=== PATIENT | female | born 1940 | race Hispanic/Latino ===

== ENCOUNTER 2022-07-18 06:37 | Day surgery (SDC) | payer MEDICARE, OTHER ==
[2022-07-15 11:21] LABS: APPEARANCE,URINE CLEAR (CLEAR); BILIRUBIN,URINE NEGATIVE (NEGATIVE); COLOR,URINE COLORLESS (YELLOW); GLUCOSE, URINE (UA) NEGATIVE (NEGATIVE); KETONES,URINE NEGATIVE (NEGATIVE); LEUKOCYTE ESTERASE ,URINE 250 Leu/uL (NEGATIVE); NITRATE,URINE NEGATIVE (NEGATIVE); OCCULT BLOOD,URINE NEGATIVE (NEGATIVE); PROTEIN,URINE NEGATIVE (NEGATIVE); UROBILINOGEN,URINE 0.2 mg/dL (0.2-1.0)
[2022-07-15 11:21] LABS: INR 1.01 (0.85-1.15)
[2022-07-15 11:22] LABS: PARTIAL THROMBOPLASTIN TIME 26.4 SEC (26.3-35.5)
[2022-07-15 11:24] LABS: ALBUMIN 3.5 g/dL (3.5-5.0); BILIRUBIN,DIRECT 0.1 mg/dL (0.0-0.3); CREATININE 0.7 mg/dL (0.5-1.5); POTASSIUM 4.5 mmol/L (3.5-5.1); TOTAL PROTEIN, SERUM 7.1 g/dL (6.0-8.3)
[2022-07-15 11:26] LABS: BASOPHILS % (AUTO) 0.6 % (0.0-5.0); EOSINOPHILS % (AUTO) 3.4 % (0.0-8.0); HEMATOCRIT 31.3 % (36-48); LYMPHOCYTES % (AUTO) 31.9 % (21.0-51.0); MEAN CORPUSCULAR HEMOGLOBIN 26.2 pg (27.0-33.0); MEAN CORPUSCULAR HGB CONC 30.7 g/dL (32.0-36.0); MEAN CORPUSCULAR VOLUME 85.5 fL (79-99); MONOCYTES % (AUTO) 6.5 % (3.0-13.0); NEUTROPHILS % (AUTO) 57.2 % (40.0-77.0); PLATELET COUNT (AUTO) 129 K/uL (130-400); RED BLOOD CELL COUNT(AUTO) 3.66 MIL/uL (4.00-5.50); RED CELL DISTRIBUTION WIDTH 15.7 % (11.0-15.5)
[2022-07-15 11:32] LABS: BACTERIA,URINE RARE /HPF (None Seen); SQUAMOUS EPITHELIAL CELL,UR RARE /HPF (0-2)
[2022-07-15 14:26] VITALS: BP 213/88
[2022-07-18] VITALS (15 sets, daily range): BP systolic 128–173; BP diastolic 51–72
[~2022-07-18] VITALS: Ht 165.1 cm; Wt 77.4 kg
[~2022-07-18 06:37] MED LIST: ASPI-1197 PO; ATOR40TA71 PO; BACITRACIN 28.4 GM OINT TP ONE; CARB15DR OU; CARV25TA PO; DOCU100T PO; LISI20TA24 PO; METF-446 PO; SEMA7TAB2 PO; SODI30SP3 NS
[2022-07-18] MEDS ORDERED: 0.9%NACL 1000ML 1,000 ML IV ONE (06:54)
[2022-07-18] MEDS ORDERED: LIDOCAINE 1%-EPI 1:100,000 20 ML VIAL IJ SCH (07:00)
[2022-07-18] MEDS ORDERED: CEFAZOLIN SODIUM 2 GM VIAL IVPB PRN (08:00)
[2022-07-18] MEDS ORDERED: LIDOCAINE HCL MPF 1% 5ML VIAL ONE (09:00)
[2022-07-18] MEDS ORDERED: MIDAZOLAM HCL 1 MG/ML 2ML VIAL ONE (09:01)
[2022-07-18] MEDS ORDERED: ROCURONIUM 10MG/1ML SYR 10 MG/ML ML ONE (09:01)
[2022-07-18] MEDS ORDERED: PROPOFOL 10 MG/ML 20ML VIAL IV ONE (09:01)
[2022-07-18] MEDS ORDERED: FENTANYL CITRATE PF 50 MCG/1 ML 2ML VIAL ONE (09:01)
[2022-07-18] MEDS ORDERED: DEXAMETHASONE SOD PHOSPHATE 4 MG/ML 1ML VIAL ONE (11:05)
[2022-07-18] MEDS ORDERED: ONDANSETRON 4MG INJ ONE (11:05)
[2022-07-18] MEDS ORDERED: GLYCOPYRROLATE 1 MG/5 ML SYRINGE ONE (11:41)
[2022-07-18] MEDS ORDERED: NEOSTIGMINE 5MG/5ML SYR IV ONE (11:41)
[2022-07-18] MEDS ORDERED: HYDRALAZINE 20MG/ML VIAL ONE (12:12)
== END 2022-07-18 13:15 | disposition home or self-care (01) ==
LOC: DAH 06:37
PROVIDERS: ATTEND Otolaryngology Plastic Surgery within the Head & Neck
DX: C44.02 Squamous cell carcinoma of skin of lip (principal); Z20.822 Contact with and (suspected) exposure to COVID-19; I10 Essential (primary) hypertension; E11.9 Type 2 diabetes mellitus without complications; E66.3 Overweight; Z79.01 Long term (current) use of anticoagulants; Z79.899 Other long term (current) drug therapy; Z98.890 Other specified postprocedural states; Z90.710 Acquired absence of both cervix and uterus; Z86.73 Personal history of transient ischemic attack (TIA), and cerebral infarction without residual deficits; Z68.28 Body mass index [BMI] 28.0-28.9, adult
CPT/HCPCS: 71045; 87426; 80076; 80048; 85025; 85610; 85730; 87077; 87088; 87186; 81001; 36415; 93005; 11643; 82948 ×2; J1100; A4663; A4606; J3010; J3490 ×3; J2710; J7030; J0360; J2250; J2704; J2405; A4649; A4215; A4223; A4222; A4221; A4600